=== PATIENT | male | born 1995 | race Caucasian/White ===

== ENCOUNTER 2020-05-21 17:38 | Emergency (ER) | payer OTHER ==
--- NOTE | 2020-05-21 18:10 | EDM.PDOC ---
<Laith Da Silva - Last Filed: 05/21/20 18:48> ED HPI GENERAL MEDICAL PROBLEM - General Chief Complaint: Genitourinary Problem Stated Complaint: GROIN PAIN Time Seen by Provider: 05/21/20 17:57 Source of Information: Reports: Patient, RN Notes Reviewed - History of Present Illness INITIAL COMMENTS - FREE TEXT/NARRATIVE: 24 yr old male with onset of L testicular pain yesterday AM that lasted for about 2 hrs and than had recurrent L testicular pain today that started about 8 hours ago, quite severe for about 2 hours, now mild but persitent. No voiding sx. or discharge. No fever or chills. 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 Left Scrotum Pain Score (Numeric/FACES): 2 - Related Data Allergies Allergy/AdvReac Type Severity Reaction Status Date / Time cat dander Allergy Sneezing Verified 05/21/20 17:52 horse dander Allergy Sneezing Verified 05/21/20 17:52 Home Meds: Home Meds Fluticasone/Vilanterol [Breo Ellipta 200-25 MCG Inhalation Kit] 1 inhalation DAILY 05/21/20 [History] Montelukast [Singulair] 10 mg PO DAILY 05/21/20 [History] atoMOXetine [Strattera] 40 mg pe PO DAILY 05/21/20 [History] Past Medical History Respiratory History: Reports: Asthma Musculoskeletal History: Reports: Fracture Neurological History: Reports: Concussion Psychiatric History: Reports: ADD Social & Family History - Tobacco Use Smoking Status *Q: Never Smoker - Caffeine Use Caffeine Use: Reports: Energy Drinks - Recreational Drug Use Recreational Drug Use: No ED ROS GENERAL - Review of Systems Review Of Systems: See Below Constitutional: Denies: Fever, Chills, Diaphoresis HEENT: Reports: No Symptoms Respiratory: Denies: Shortness of Breath GI/Abdominal: Denies: Abdominal Pain, Nausea, Vomiting : Reports: Other (Pain and swelling L scrotum) Musculoskeletal: Denies: Back Pain, Leg Pain Skin: Denies: Rash Neurological: Reports: No Symptoms ED EXAM, RENAL/ - Physical Exam Exam: See Below General Appearance: Alert, No Apparent Distress Head: Atraumatic Neck: Supple Respiratory/Chest: No Respiratory Distress (Male) Exam: Scrotal Swelling, Scrotum Tenderness (L), Other (there is fullness of the cords posterior to the L scrotum, no evidence for hernia) Extremities: Normal Inspection, Normal Range of Motion Skin Exam: Warm, Dry, Normal Color Course - Re-Assessments/Exams Free Text/Narrative Re-Assessment/Exam: 05/21/20 18:48 approaching change of shift. Have ordered US scrotum, UA, GC/Chlamydia screen. Will transfer care to Dr Deleon. Departure - Departure Disposition: Home, Self-Care 01 Clinical Impression: Bilateral hydrocele, Bilateral varicoceles - Discharge Information Referrals: Ashly Cifuentes NP [Primary Care Provider] - Tapan Trejo MD [Ordering Only Provider] - Forms: ED Department Discharge Additional Instructions: You were seen in the emergency room for recurrent left testicular pain. Work-up in the ER included a urinalysis, a test for chlamydia and gonorrhea, and an ultrasound of your scrotum. Your urinalysis was unremarkable - you not have a urinary tract infection. The test for chlamydia and gonorrhea was negative, and the ultrasound showed hydroceles on both sides as well as varicoceles on both sides. The hydroceles and varicoceles have likely been there for a long time, however, because they are likely the source of your discomfort, surgical repair may be necessary. We recommend that you follow-up with the Urologist Dr. Tapan Trejo, in [place], at the next available appointment. In the meantime, you may take [id number] ibuprofen, 3 tablets (600 mg) up to every 8 hours, with food, as needed for discomfort. If any other problems, please do not hesitate to return to the ER. Sepsis Event Note (ED) - Evaluation Sepsis Screening Result: No Definite Risk <Daniel Deleon - Last Filed: 05/21/20 23:17> Course - Vital Signs Last Recorded V/S: Last Vital Signs Temp 36.6 C 05/21/20 21:21 Pulse 70 05/21/20 21:21 Resp 16 05/21/20 21:21 BP 134/88 05/21/20 21:21 Pulse Ox 98 05/21/20 21:21 - Orders/Labs/Meds Orders: Active Orders 24 hr Category Date Time Status Scrotum and Contents [US] Stat Exams 05/21/20 18:28 Taken Labs: Laboratory Tests 05/21/20 05/21/20 Range/Units 19:45 19:45 Urine Color Yellow (Yellow) Urine Appearance Clear (Clear) Urine pH 7.0 (5.0-8.0) Ur Specific [place] 1.025 (1.005-1.030) Urine Protein Negative (Negative) Urine Glucose (UA) Negative (Negative) Urine Ketones Negative (Negative) Urine Occult Blood Negative (Negative) Urine Nitrite Negative (Negative) Urine Bilirubin Negative (Negative) Urine Urobilinogen 0.2 (0.2-1.0) Ur Leukocyte Esterase Negative (Negative) C trachomatis DNA (PCR) Not detected N gonorrhoeae DNA (PCR) Not detected - Re-Assessments/Exams Free Text/Narrative Re-Assessment/Exam: 05/21/20 23:01 Ultrasound of the scrotum and contents is read by Jennifer as: 1. No evidence of testicular torsion. 2. Bilateral hydroceles are present. 3. Bilateral epididymal cysts are present. 4. Left varicocele is present. The patient's urinalysis is unremarkable. His chlamydia and gonorrhea test by PCR returned negative. 05/21/20 23:09 Test results discussed with the patient and his girlfriend. Although both the hydrocele and varicocele have likely been there for a long time, since they are causing him discomfort, surgery may need to be considered. I will refer him to Urology in [place]. We will provide the patient with a CD-ROM of his ultrasound images. In the meantime, he can take [id number] ibuprofen. Departure - Departure Time of Disposition: 23:12 Condition: Good - Discharge Information *PRESCRIPTION DRUG MONITORING PROGRAM REVIEWED*: Not Applicable *COPY OF PRESCRIPTION DRUG MONITORING REPORT IN PATIENT ANIVAL: Not Applicable Sepsis Event Note (ED) - Focused Exam Vital Signs: Vital Signs Temp Pulse Resp BP Pulse Ox 05/21/20 21:21 36.6 C 70 16 134/88 98 05/21/20 17:46 36.6 C 88 16 148/101 H 99
[2020-05-21 21:23] LABS: C. TRACHOMATIS BY PCR NOT DETECTED; N. GONORRHOEAE BY PCR NOT DETECTED
--- NOTE | 2020-05-23 10:22 | US ---
Testicular ultrasound: Multiple real-time images of the testicles were obtained. Comparison: No prior testicular imaging is available. Findings: Testicles have a homogeneous ultrasound appearance. No discrete intratesticular abnormality is seen. Both arterial and venous blood flow are seen. Varicocele noted on the left side. Small bilateral hydroceles are seen. Small epididymal cyst is noted on both sides, largest measures 8 mm. Measurements: Right testicle: 5.2 x 1.7 x 3.3 cm Left testicle: 5.5 x 2.8 x 5.7 cm Impression: 1. Left-sided varicocele. 2. Small bilateral hydrocele. 3. Small epididymal cyst on both sides. Diagnostic code #3 This report was dictated in MDT
== END 2020-05-21 23:26 | disposition home or self-care (01) ==
LOC: JD.ED 17:38
DX: N43.3 Hydrocele, unspecified (principal); I86.1 Scrotal varices; J45.909 Unspecified asthma, uncomplicated; Z91.048 Other nonmedicinal substance allergy status; Z79.899 Other long term (current) drug therapy
CPT/HCPCS: 76870; 76870-26; 81003; 87491; 87591; 93975; 99282; 99284-25

== ENCOUNTER 2024-09-16 10:45 | Emergency (ER) | payer BC ==
[2024-09-16 11:53] LABS: BASOPHILS ABSOLUTE AUTO 0.1 K/mm3 (0.0-0.2); BASOPHILS PERCENT AUTO 1.1 % (0.0-1.0); EOSINOPHILS ABSOLUTE AUTO 0.1 K/mm3 (0.0-0.4); EOSINOPHILS PERCENT AUTO 2.1 % (0.0-6.0); HEMATOCRIT 44.5 % (42.0-52.0); IMMATURE GRAN ABSOLUTE AUTO 0.01 K/mm3 (0.00-0.05); IMMATURE GRAN PERCENT AUTO 0.2 % (0.0-0.4); LYMPHOCYTES ABSOLUTE AUTO 2.1 K/mm3 (1.0-4.8); LYMPHOCYTES PERCENT AUTO 34.5 % (24.0-44.0); MEAN CORPUSCULAR HEMOGLOBIN 30.3 pg (28.0-32.0); MEAN CORPUSCULAR HGB CONC 33.7 g/dl (32.0-36.0); MEAN CORPUSCULAR VOLUME 89.9 fl (83.0-99.0); MEAN PLATELET VOLUME 10.9 fl (9.4-12.4); MONOCYTES ABSOLUTE AUTO 0.5 K/mm3 (0.0-0.8); MONOCYTES PERCENT AUTO 7.9 % (0.0-8.0); NEUTROPHILS ABSOLUTE AUTO 3.3 K/mm3 (1.8-7.7); NEUTROPHILS PERCENT AUTO 54.2 % (41.0-71.0); PLATELET COUNT,PLT 229 K/mm3 (150-400); RED BLOOD CELL COUNT 4.95 M/mm3 (4.52-5.90); WHITE BLOOD CELL COUNT,WBC 6.09 K/mm3 (3.9-11.3)
[2024-09-16] MEDS: Lactated Ringers 1,000 ML IV ONE (11:58)
[2024-09-16 12:22] LABS: A/G RATIO 1.4 (1-2); ALANINE AMINOTRANSFERASE,ALT 13 U/L (16-63); ALBUMIN 4.1 g/dl (3.4-5.0); ALKALINE PHOSPHATASE 78 U/L (46-116); ANION GAP 13.4 (5-15); ASPARTATE AMNIOTRANSFERASE,AST 13 U/L (15-37); BILIRUBIN TOTAL 0.5 mg/dL (0.2-1.0); BLOOD UREA NITROGEN,BUN 9 mg/dL (7-18); C-REACTIVE PROTEIN 0.11 mg/dL (<0.30); CALCIUM 8.9 mg/dL (8.5-10.1); CARBON DIOXIDE,CO2 29 mEq/L (21-32); CHLORIDE,CL 105 mEq/L (98-107); EST CRCL DRUG DOSING (CG) 121.79 mL/min; ESTIMATED GFR 106 mL/min (>60); GLUCOSE RANDOM 100 mg/dL (70-99); LIPASE 31 U/L (16-77); MAGNESIUM 1.9 mg/dL (1.8-2.4); PROTEIN TOTAL,TP 7.1 g/dl (6.4-8.2); SODIUM,NA 143 mEq/L (136-145)
[2024-09-16 12:23] LABS: LACTIC ACID 1.3 mmol/L (0.4-2.0)
[2024-09-16 12:24] LABS: POTASSIUM,K 4.4 mEq/L (3.5-5.1); TROPONIN I HIGH SENSITIVITY < 4 pg/mL (<=76)
[2024-09-16] MEDS: Sodium Chloride 0.9% 10 ML Syringe FLUSH ONE (12:48)
[2024-09-16] MEDS: Iopamidol 612 MG/ML 100 ML Bottle IVPUSH ONE (12:48)
[2024-09-16 12:50] LABS: CORONAVIRUS COVID-19 NAA NEGATIVE (NEGATIVE); INFLUENZA A NAA NEGATIVE (NEGATIVE); RESPIRATORY SYNCYTIAL VIR NAA NEGATIVE (NEGATIVE)
[2024-09-16] MEDS ORDERED: Albuterol/Ipratropium 3.0-0.5 MG/3 ML Neb Soln NEB ONE (13:03)
[2024-09-16 13:10] LABS: APPEARANCE,URINE CLEAR (Clear); BILIRUBIN,URINE NEGATIVE (Negative); COLOR,URINE YELLOW (Yellow); GLUCOSE,URINE NEGATIVE (Negative); KETONES,URINE NEGATIVE (Negative); LEUKOCYTE ESTERASE,URINE NEGATIVE (Negative); NITRITE,URINE NEGATIVE (Negative); OCCULT BLOOD,URINE NEGATIVE (Negative); PROTEIN,URINE NEGATIVE (Negative); UROBILINOGEN,URINE 0.2 (0.2-1.0)
== END 2024-09-16 14:16 | disposition home or self-care (01) ==
LOC: JD.ED 10:45
DX: R42 Dizziness and giddiness (principal); R10.12 Left upper quadrant pain; R53.83 Other fatigue; T50.905A Adverse effect of unspecified drugs, medicaments and biological substances, initial encounter; J45.909 Unspecified asthma, uncomplicated; Z86.16 Personal history of COVID-19; Z88.8 Allergy status to other drugs, medicaments and biological substances; Z91.048 Other nonmedicinal substance allergy status; Z88.9 Allergy status to unspecified drugs, medicaments and biological substances
CPT/HCPCS: 0241U; 36415; 74177; 80053; 81003; 83605; 83690; 83735; 84484; 85025; 85379; 86140; 96360; 99285; J3490; J7120; Q9967